=== PATIENT | female | born 1990 | race Caucasian/White ===

== ENCOUNTER → 2022-12-11 14:24 | Outpatient (CLI) | payer BC, SELFPAY ==
--- NOTE | ~2022-12-11 | MMUS_ITS ---
EXAMINATION: MM diagnostic raina BI w idania, US breast BI limited HISTORY: Bilateral nipple discharge TECHNIQUE: Craniocaudal, mediolateral, and mediolateral oblique 3-D tomosynthesis images of the breas ts were performed and synthetic 2-D images were generated. CAD analysis was submitted and interpreted . High resolution limited bilateral breast ultrasound was performed. COMPARISON: None, baseline BREAST PARENCHYMAL COMPOSITION: The breasts are heterogeneously dense, which may obscure small masses . FINDINGS: MAMMOGRAPHIC FINDINGS: No suspicious mass, calcification, or architectural distortion are identified in either breast to sug gest malignancy. ULTRASOUND: Small cysts are noted in both breasts. No sonographic correlate is identified for the patient's repor buddy bilateral nipple discharge. IMPRESSION: 1. No specific mammographic or sonographic correlate is identified for the patient's reported bilater al nipple discharge. Further evaluation at this time should be based on clinical assessment. Continue d follow-up physical examination is recommended. BI-RADS Category 2: Benign finding(s). Reviewed, dictated and finalized at location A. IMPRESSION: 1. No specific mammographic or sonographic correlate is identified for the amilcar ent's reported bilateral nipple discharge. Further evaluation at this time shou ld be based on clinical assessment. Continued follow-up physical examination is recommended. BI-RADS Category 2: Benign finding(s).
== END ==
PROVIDERS: PCP Nurse Practitioner Family; Visit Provider Nurse Practitioner
DX: N64.52 Nipple discharge (principal)
CPT/HCPCS: 76642; 77062; 77066; G0279

== ENCOUNTER 2022-12-13 08:27 | Outpatient (CLI) | payer BC, SELFPAY ==
--- NOTE | ~2022-12-13 | US_ITS ---
Abdominal Sonogram: Real-time sonographic imaging of the abdomen was performed. Clinical History: Abdominal aortic aneurysm Findings: The liver appears normal with no evidence of mass lesion or bile duct dilatation. Main por joana vein demonstrates normal direction of flow. The spleen is normal in size without evidence of foca l lesion. The gallbladder is absent, compatible prior cholecystectomy. The common bile duct measures 6 mm. The visualized pancreas, aorta, and IVC are unremarkable. The right kidney measures 10.8 cm in length and the left kidney measures 9.0 cm. There is no hydronephrosis or renal calculus. Impression: No abdominal aortic aneurysm. Status post cystectomy. Reviewed, dictated and finalized at location . Impression: No abdominal aortic aneurysm. Status post cystectomy.
== END 2022-12-13 08:28 ==
PROVIDERS: PCP Family Medicine; Visit Provider Nurse Practitioner Family
DX: K21.9 Gastro-esophageal reflux disease without esophagitis (principal); Z82.49 Family history of ischemic heart disease and other diseases of the circulatory system
CPT/HCPCS: 76700

== ENCOUNTER 2023-05-27 09:30 | Outpatient (CLI) | payer BC, SELFPAY ==
--- NOTE | ~2023-05-27 | XR_ITS ---
XR lumbar spine 6V w bending DATE: 05/27/2023 10:03 INDICATION: Low back pain TECHNIQUE: AP, lateral, coned lateral lumbosacral and bilateral oblique views. Standing flexion and e xtension lateral views. COMPARISON: None FINDINGS: There is mild thoracolumbar levoscoliosis. No fracture or spondylolisthesis or spondylolysis is noted. Lumbosacral interspaces are well preserve d. The sacroiliac joints are intact. Surgical clips overlie right upper quadrant, likely due to cholecystectomy. Additional surgical clips overlie the left upper and mid left lower abdomen. Is a prominent amount of fecal material within the colon, particularly the ascending colon and transv erse colon. IMPRESSION: Mild thoracolumbar levoscoliosis Reviewed, dictated and finalized at location B.
== END 2023-05-27 09:31 ==
PROVIDERS: PCP Family Medicine; Visit Provider Nurse Practitioner Family
DX: M54.10 Radiculopathy, site unspecified (principal); M41.85 Other forms of scoliosis, thoracolumbar region
CPT/HCPCS: 72114

== ENCOUNTER 2023-06-14 08:46 | Outpatient (CLI) | payer BC, SELFPAY ==
--- NOTE | ~2023-06-14 | MR_ITS ---
EXAMINATION: MR lumbar spine wo con DATE: 06/14/2023 10:44 INDICATION: Radiculopathy, site unspecified. TECHNIQUE: Magnetic resonance imaging (MRI) of the lumbar spine was performed without intravenous con trast. Sequences included sagittal T2-weighted FSE, sagittal T2-weighted FS FSE, sagittal T1-weighted FSE, and axial T2-weighted FSE. COMPARISON: Lumbar spine radiographs 05/27/2023 FINDINGS: There is 6 degrees levocurvature of lumbar spine. Vertebral body heights and intervertebral disc heights are normal. There is a 6.3 x 3.2 cm expansile mass in the sacrum with increased T2-weig hted signal intensity. There is moderate stenosis of right S1 neural foramen. The distal spinal cord signal intensity is normal. The conus medullaris is at L1. The following disc levels are specifically discussed: L1-L2: The disc does not extend beyond the endplate margin. There is mild bilateral facet joint osteo arthritis. There is no neural foraminal stenosis. There is no central canal stenosis. L2-L3: The disc does not extend beyond the endplate margin. There is moderate bilateral facet joint o steoarthritis. There is no neural foraminal stenosis. There is no central canal stenosis. L3-L4: The disc does not extend beyond the endplate margin. There is mild right and moderate left fac et joint osteoarthritis. There is no neural foraminal stenosis. There is no central canal stenosis. L4-L5: The disc does not extend beyond the endplate margin. There is mild bilateral facet joint osteo arthritis. There is no neural foraminal stenosis. There is no central canal stenosis. L5-S1: The disc does not extend beyond the endplate margin. There is mild bilateral facet joint osteo arthritis. There is no neural foraminal stenosis. There is no central canal stenosis. IMPRESSION: 1. Expansile mass in the sacrum. The differential diagnosis includes hemangioma and metastatic diseas e. Comparison old CTs are not currently available due to technical issues. 2. Mild lumbar spondylosis. Reviewed, dictated and finalized at location E. IMPRESSION: 1. Expansile mass in the sacrum. The differential diagnosis includes hemangioma and metastatic disease. Comparison old CTs are not currently available due to technical issues. 2. Mild lumbar spondylosis.
== END 2023-06-14 08:47 | disposition home or self-care (01) ==
LOC: ANHIMG 08:49
PROVIDERS: PCP Family Medicine; Visit Provider Nurse Practitioner Family
DX: M54.41 Lumbago with sciatica, right side (principal); M43.06 Spondylolysis, lumbar region; D16.8 Benign neoplasm of pelvic bones, sacrum and coccyx
CPT/HCPCS: 72148

== ENCOUNTER 2023-07-09 08:17 | Outpatient (CLI) | payer BC, SELFPAY ==
--- NOTE | ~2023-07-09 | MR_ITS ---
EXAMINATION: MR lumbar spine wo/w con DATE: 07/09/2023 09:17 INDICATION: Sacral mass. TECHNIQUE: Magnetic resonance imaging (MRI) of the lumbar spine was performed without and with 20 mL MultiHance intravenous contrast. COMPARISON: CT lumbar spine 07/01/2023, CT abdomen and pelvis 12/03/2013, lumbar spine MRI 06/14/2023 FINDINGS: There is 7 degrees levocurvature of lumbar spine. Vertebral body heights and intervertebral disc heights are normal. The discs do not extend beyond the endplate margins. There are 2 aggressive lytic lesions in the sacrum. The larger measures 6.2 x 3.7 cm and involves the right S1 neural alivia en. There is a lesion of bone marrow replacement in the right L3 posterior elements. There is multile mary mild facet joint osteoarthritis. The distal spinal cord signal intensity is normal. The conus med ullaris is at L1. IMPRESSION: 1. Two bone lesions, consistent with metastatic disease. One of the lesions involves the right S1 laura ral foramen. Note that the patient has a history of retroperitoneal paraganglioma resection in 2012 m aking this a possible primary. Reviewed, dictated and finalized at location A. [employer] ANALYST IMPRESSION: 1. Two bone lesions, consistent with metastatic disease. One of the lesions inv olves the right S1 neural foramen. 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
--- NOTE | ~2023-07-09 | CT_ITS ---
EXAMINATION: CT lumbar spine wo con DATE: 07/09/2023 08:39 INDICATION: Sacral mass. TECHNIQUE: Computed tomography (CT) of the lumbar spine was performed without intravenous contrast. A utomated exposure control and iterative reconstruction technique were employed. The dose-length produ ct was 985.13 mGy-cm. COMPARISON: Lumbar spine MRI 07/09/2023, CT abdomen and pelvis 12/03/2013 FINDINGS: There is 7 degrees levocurvature of thoracolumbar spine. Vertebral body heights are normal. There is an aggressive lytic lesion in the sacrum measuring 6.5 x 2.7 cm. There is involvement of th e right S1 neural foramen. There is a 1.8 cm aggressive lytic lesion in the left sacral ala. Interver tebral disc heights are normal. The following disc levels are specifically discussed: L1-L2: The disc does not extend beyond the endplate margin. There is mild bilateral facet joint osteo arthritis. There is no neural foraminal stenosis. There is no central canal stenosis. L2-L3: The disc does not extend beyond the endplate margin. There is moderate bilateral facet joint o steoarthritis. There is no neural foraminal stenosis. There is no central canal stenosis. L3-L4: The disc is bulging. There is mild bilateral facet joint osteoarthritis. There is mild bilater al neural foraminal stenosis. There is no central canal stenosis. L4-L5: The disc is bulging. There is mild bilateral facet joint osteoarthritis. There is mild bilater al neural foraminal stenosis. There is mild central canal stenosis. L5-S1: The disc is bulging. There is moderate bilateral facet joint osteoarthritis. There is mild zara ateral neural foraminal stenosis. There is mild central canal stenosis. IMPRESSION: 1. Two aggressive lytic lesions of the sacrum, consistent with metastatic disease. Reviewed, dictated and finalized at location A. NG ROOM HOST/HOSTESS IMPRESSION: 1. Two aggressive lytic lesions of the sacrum, consistent with metastatic disea se.
== END 2023-07-09 08:18 ==
PROVIDERS: PCP Nurse Practitioner Family
DX: M53.3 Sacrococcygeal disorders, not elsewhere classified (principal); M89.9 Disorder of bone, unspecified
CPT/HCPCS: 72131; 72158; A9577

== ENCOUNTER 2023-09-05 14:25 | Outpatient (CLI) | payer BC, SELFPAY ==
[2023-09-05 14:46] LABS: Basophils Percent Auto 0.4 % (0.2-1.2); Eosinophils Absolute Auto 0.1 K/mm3 (0-0.3); Eosinophils Percent Auto 1.8 % (0-4.4); Hematocrit 37.2 % (37.0-47.0); Hemoglobin 12.3 g/dL (12.0-15.0); Immature Granulocyte Absolute 0.04 K/mm3 (0.00-0.031); Immature Granulocyte Percent A 0.7 % (0-0.5); Lymphocytes Absolute Auto 2.04 K/mm3 (0.9-3.2); Lymphocytes Percent Auto 36.9 % (18.3-44.2); Mean Corpuscular HGB Conc 33.1 g/dl (32-36); Mean Corpuscular Hemoglobin 32.5 pg (26-34); Mean Corpuscular Volume 98.2 fl (80-100); Mean Platelet Volume 8.8 fl (7.4-10.4); Monocytes Absolute Auto 0.3 K/mm3 (0.1-0.6); Monocytes Percent Auto 4.7 % (2.6-8.5); Neutrophils Absolute Auto 3.1 K/mm3 (1.3-6.7); Neutrophils Percent Auto 55.5 % (45.5-73.1); Platelet Count Result 210 k/mm3 (150-375); Red Blood Count 3.79 M/mm3 (4.2-5.4); Red Cell Distribution Width 12.9 % (11.5-14.5); White Blood Count 5.5 K/mm3 (4.5-10.0)
[2023-09-05 16:29] LABS: Alanine Aminotransferase 11 U/L (6-35); Albumin Level 4.3 g/dL (3.5-5.1); Alkaline Phosphatase 63 U/L (38-126); Anion Gap 8 mmol/L (8-16); Aspartate Amino Transferase 18 U/L (14-36); Bilirubin,Total 0.5 mg/dL (0.2-1.3); Blood Urea Nitrogen 10 mg/dL (7-17); Calcium 9.4 mg/dL (8.4-10.2); Carbon Dioxide 24 mmol/L (22-30); Chloride 108 mmol/L (98-107); Estimated Glomerular Filt Rate > 60; Glucose 92 mg/dL (65-110); Potassium 3.9 mmol/L (3.4-5.0); Sodium 140 mmol/L (137-145)
[2023-09-05 16:38] LABS: Immunoglobulin A 325 mg/dL (70-400); Immunoglobulin G 1169 mg/dL (700-1600); Immunoglobulin M 78 mg/dL (40-230)
[2023-09-07 20:32] LABS: Kappa\\Lambda Light Chains 1.24 (0.26-1.65); Lambda Light Chain 14.7 mg/L (5.7-26.3)
[2023-09-08 13:15] LABS: Albumin 3.9 g/dL (3.8-4.8); Alpha 1 Globulin 0.3 g/dL (0.2-0.3); Alpha 2 Globulin 0.8 g/dL (0.5-0.9); Beta 1 Globulin 0.7 g/dL (0.4-0.6); Gamma Globulin 1.1 g/dL (0.8-1.7); Protein, Total 7.2 g/dL (6.1-8.1)
== END 2023-09-05 14:26 | disposition home or self-care (01) ==
LOC: ANHLAB 14:26
PROVIDERS: PCP Nurse Practitioner Family; Visit Provider Internal Medicine Hematology & Oncology
DX: D44.7 Neoplasm of uncertain behavior of aortic body and other paraganglia (principal); M89.9 Disorder of bone, unspecified
CPT/HCPCS: 36415; 80053; 82784; 83883; 84155; 84165; 85025

== ENCOUNTER 2023-09-06 12:17 | Outpatient (CLI) | payer BC, SELFPAY ==
[2023-09-06 12:26] LABS: Kit Draw Collected
== END 2023-09-06 12:18 | disposition home or self-care (01) ==
LOC: ANHLAB 12:19
PROVIDERS: PCP Nurse Practitioner Family; Visit Provider Internal Medicine Hematology & Oncology
DX: M89.9 Disorder of bone, unspecified (principal)
CPT/HCPCS: 36415

== ENCOUNTER 2023-09-09 08:44 | Outpatient (CLI) | payer BC, SELFPAY ==
[2023-09-14 21:32] LABS: Metanephrine, Total Urine 276 mcg/24 h (115-695); Metanephrine, Urine 117 mcg/24 h (36-190); Normetanephrine, Urine 159 mcg/24 h (35-482)
== END 2023-09-09 08:45 | disposition home or self-care (01) ==
LOC: ANHLAB 08:45
PROVIDERS: PCP Nurse Practitioner Family; Visit Provider Internal Medicine Hematology & Oncology
DX: D44.7 Neoplasm of uncertain behavior of aortic body and other paraganglia (principal)
CPT/HCPCS: 83835